=== PATIENT | female | born 1985 | race Caucasian/White ===

== ENCOUNTER 2016-11-22 02:23 | Emergency (ER) | payer OTHER ==
[2016-11-22] MEDS ORDERED: diphenhydrAMINE HCL 50 MG CAPSULE PO ONE (02:55)
[2016-11-22] MEDS ORDERED: predniSONE 20 MG TABLET (UD) PO ONE (03:08)
[2016-11-22 03:09] VITALS: TEMP 97.9; BMI 22.3
[2016-11-22] MEDS ORDERED: predniSONE 10 MG TABLET (UD) ONE (03:12)
[2016-11-22] MEDS ORDERED: diphenhydrAMINE HCL 25 MG CAPSULE (FP) PO ONE (03:12)
--- NOTE | 2016-11-22 03:51 | PDOC ---
History of Present Illness - History of Present Illness Initial Comments: 11/22/16 03:10 Ms. Girard is a 31 yo female with no significant pmh who presents with swelling of the upper lip. States that she ate shrimp and steak before bedtime and took 2 aspirin pills for a headache before bedtime. Denies itching of face/throat, tongue swelling, SOB, rash, eye involvement, or wheezing. Denies recent change in soap, shampoo, detergents, pillow cases, or towels. Denies trauma to lip. Denies OTC symptom management. <Josse Costa - Last Filed: 11/22/16 03:10> <Haley Deng - Last Filed: 11/22/16 04:41> - General Chief Complaint: Allergic Reaction Stated Complaint: ALLERGIC REACTION Time Seen by Provider: 11/22/16 02:43 Past History - Past Medical History Other medical history: Denies - Immunization History Immunization Up to Date: No - Psycho/Social/Smoking Cessation Hx Anxiety: No Suicidal Ideation: No Smoking History: Never smoked Have you smoked in the past 12 months: No Information on smoking cessation initiated: No Hx Alcohol Use: No Drug/Substance Use Hx: No Substance Use Type: None <Josse Costa - Last Filed: 11/22/16 03:10> <Haley Deng - Last Filed: 11/22/16 04:41> - Past Medical History Allergies/Adverse Reactions: Allergies Allergy/AdvReac Type Severity Reaction Status Date / Time No Known Allergies Allergy Verified 11/22/16 03:08 Home Medications: Ambulatory Orders Acetaminophen [Tylenol] 650 mg PO Q6H #100 tablet 07/13/14 Albuterol Sulfate Inhaler - [Ventolin HFA Inhaler -] 1 - 2 inh PO Q4H #1 inhaler 07/13/14 Ibuprofen [Motrin -] 600 mg PO TID #30 tablet 07/13/14 Ondansetron [Zofran Odt -] 4 mg SL TID #10 od.tablet 07/13/14 Diphenhydramine HCl [Benadryl -] 25 mg PO Q6H #28 capsule 11/22/16 Epinephrine [Epipen] 0.3 mg IJ ONCE #1 auto.injct 11/22/16 Prednisone [Deltasone -] 40 mg PO DAILY #10 tablet 11/22/16 Review of Systems - Review of Systems Comments:: 11/22/16 03:57 GENERAL/CONSTITUTIONAL: No fever or chills. No weakness. HEAD EYES, EARS, NOSE AND THROAT: + Upper Lip Swelling. No change in vision. No ear pain or discharge. No sore throat. CARDIOVASCULAR: No chest pain or shortness of breath RESPIRATORY: No cough, wheezing, or hemoptysis. GASTROINTESTINAL: No nausea, vomiting, diarrhea or constipation. GENITOURINARY: No dysuria, frequency, or change in urination. MUSCULOSKELETAL: No joint or muscle swelling or pain. No neck or back pain. SKIN: No rash NEUROLOGIC: No headache, vertigo, loss of consciousness, or change in strength/ sensation. ENDOCRINE: No increased thirst. No abnormal weight change HEMATOLOGIC/LYMPHATIC: No anemia, easy bleeding, or history of blood clots. ALLERGIC/IMMUNOLOGIC: No hives or skin allergy. <Johny Costason - Last Filed: 11/22/16 03:10> *Physical Exam - Vital Signs Last Vital Signs Temp Pulse Resp BP Pulse Ox 97.9 F 88 20 119/69 97 11/22/16 03:03 11/22/16 03:03 11/22/16 03:03 11/22/16 03:03 11/22/16 03:03 - Physical Exam Comments: 11/22/16 03:58 GENERAL: Awake, alert, and fully oriented, in no acute distress HEAD: + Upper lip swelling.No evidence of puncture on lip. No signs of trauma, normocephalic, atraumatic EYES: PERRLA, EOMI, sclera anicteric, conjunctiva clear ENT: Auricles normal inspection, hearing grossly normal, nares patent, oropharynx clear without exudates. Moist mucosa NECK: Normal ROM, supple, no lymphadenopathy, JVD, or masses LUNGS: No distress, speaks full sentences, clear to auscultation bilaterally HEART: Regular rate and rhythm, normal S1 and S2, no murmurs, rubs or gallops, peripheral pulses normal and equal bilaterally. ABDOMEN: Soft, nontender, normoactive bowel sounds. No guarding, no rebound. No masses EXTREMITIES: Normal inspection, Normal range of motion, no edema. No clubbing or cyanosis. NEUROLOGICAL: Cranial nerves II through XII grossly intact. Normal speech, normal gait, no focal sensorimotor deficits SKIN: Warm, Dry, normal turgor, no rashes or lesions noted. <Josse Costa - Last Filed: 11/22/16 03:10> - Vital Signs Last Vital Signs Temp Pulse Resp BP Pulse Ox 97.9 F 88 20 119/69 97 11/22/16 03:03 11/22/16 03:03 11/22/16 03:03 11/22/16 03:03 11/22/16 03:03 <Haley Deng - Last Filed: 11/22/16 04:41> ED Treatment Course - Medications Given in the ED: ED Medications Discontinued Medications Generic Name Dose Route Start Last Admin Trade Name Freq PRN Reason Stop Dose Admin Diphenhydramine HCl 50 mg 11/22/16 02:55 11/22/16 03:24 Benadryl - PO 11/22/16 02:56 50 mg ONCE ONE Administration Prednisone 20 mg 11/22/16 03:08 11/22/16 03:24 Deltasone - PO 11/22/16 03:09 20 mg ONCE ONE Administration <Haley Deng - Last Filed: 11/22/16 04:41> Medical Decision Making - Medical Decision Making 11/22/16 04:01 Ms. Girard is a 31 yo female who presents following swelling of the upper lip. Most likely 2/2 allergic reaction. Denies throat, tongue, or eye swelling/involvement. Absent rash. ED Course: Diphenhydramine 50 mg PO Prednisone 20 mg PO <Josse Costa - Last Filed: 11/22/16 03:10> *DC/Admit/Observation/Transfer - Discharge Dispostion Admit: No - Attestations Physician Attestion: 11/22/16 03:55 I, Dr. Josse Costa, attest that this document has been prepared under my direction and personally reviewed by me in its entirety. I further attest, that it accurately reflects all work, treatment, procedures and medical decision -making performed by me. <Josse Costa - Last Filed: 11/22/16 03:10> - Discharge Dispostion Admit: No <Haley Deng - Last Filed: 11/22/16 04:41> Diagnosis at time of Disposition: Lip swelling, Allergic reaction - Discharge Dispostion Disposition: HOME Condition at time of disposition: Stable - Prescriptions Prescriptions: Diphenhydramine HCl [Benadryl -] 25 mg PO Q6H #28 capsule Prednisone [Deltasone -] 40 mg PO DAILY #10 tablet Epinephrine [Epipen] 0.3 mg IJ ONCE #1 auto.injct - Referrals Referrals: STAFF,NOT ON [Primary Care Provider] - - Patient Instructions Printed Discharge Instructions: DI for Adverse Drug Reaction -- Allergic, DI for Food Allergy - Post Discharge Activity Work/School Note: Back to Work
[2016-11-22] MEDS ORDERED: RANITIDINE HCL 150 MG TABLET (FP) PO ONE (04:24)
[2016-11-22] MEDS ORDERED: RANITIDINE HCL 150 MG TABLET (FP) ONE (04:43)
--- NOTE | 2016-11-22 04:45 | PDOC ---
Attending Attestation - Resident Resident Name: Josse Costa - HPI HPI: 11/22/16 04:44 lip swelling after eating shrimp and taking asa; never had this before; no SOB; no throat or tongue involved. Pt has no voice changes - Physicial Exam PE: 11/22/16 04:45 Normal. Upper lip only swollen. - Medical Decision Making 11/22/16 04:45 food allergy vs. aspirin allergy
[2016-11-22 06:28] VITALS: BP 127/85; PULSE 86
== END 2016-11-22 06:39 | disposition home or self-care (01) ==
LOC: JER 02:23 → SUPCPDRO 02:23 → JER 06:39
DX: T78.1XXA Other adverse food reactions, not elsewhere classified, initial encounter (principal); T78.3XXA Angioneurotic edema, initial encounter; X58.XXXA Exposure to other specified factors, initial encounter
CPT/HCPCS: 99281-25

== ENCOUNTER 2019-04-24 23:23 | Emergency (ER) | payer OTHER ==
[2019-04-24 23:34] VITALS: TEMP 99.2; BMI 24.1
--- NOTE | 2019-04-24 23:44 | PDOC ---
*Physical Exam - Vital Signs Last Vital Signs Temp Pulse Resp BP Pulse Ox 99.2 F 89 18 121/61 100 04/24/19 23:33 04/24/19 23:33 04/24/19 23:33 04/24/19 23:33 04/24/19 23:33 Medical Decision Making - Medical Decision Making 04/24/19 23:44 Patient seen by the advanced practice provider under my direct supervision. Ancillary testing reviewed as necessary. I agree with plan as outlined by the advanced practice provider. Discharge - Discharge Information Problems reviewed: Yes Clinical Impression/Diagnosis: Pain of left calf Left knee pain Qualifiers: Chronicity: acute Qualified Code(s): M25.562 - Pain in left knee Disposition: HOME - Additional Discharge Information Prescriptions: Naproxen 500 mg PO BID PRN #30 tablet PRN Reason: Pain - Follow up/Referral Referrals: Frankie Rodriguez [Primary Care Provider] - Call tomorrow - Patient Discharge Instructions Additional Instructions: continue aleve twice daily apply ice to the area you may use an lizzy bandage for comfort. keep left elevated. follow up with your doctor as soon as possible - Post Discharge Activity Work/Back to School Note: Back to Work
--- NOTE | 2019-04-24 23:46 | PDOC ---
History of Present Illness - General Chief Complaint: Pain, Acute Stated Complaint: L LEG PAIN Time Seen by Provider: 04/24/19 23:39 History Source: Patient - History of Present Illness Initial Comments: 04/25/19 00:21 34 year old female c/o left knee pain/ calf pain for 1 day. patient noted with increased swelling since the afternoon patient denies shortness of breath. patienre ports taking tylenol, ibuprofen with no significant improvement is pain. patient reports that she has been running around with her kids more than usual a few days ago. denies trauma or fall no pmhx Currently "Kim" OCP use. LMP: 03/201904/25/19 00:43 Past History - Past Medical History Allergies/Adverse Reactions: Allergies Allergy/AdvReac Type Severity Reaction Status Date / Time No Known Allergies Allergy Verified 04/24/19 23:32 Home Medications: Ambulatory Orders Acetaminophen [Tylenol] 650 mg PO Q6H #100 tablet 07/13/14 Albuterol Sulfate Inhaler - [Ventolin HFA Inhaler -] 1 - 2 inh PO Q4H #1 inhaler 07/13/14 Ibuprofen [Motrin -] 600 mg PO TID #30 tablet 07/13/14 Ondansetron [Zofran Odt -] 4 mg SL TID #10 od.tablet 07/13/14 Diphenhydramine HCl [Benadryl Capsule -] 25 mg PO Q6H #28 capsule 11/22/16 Epinephrine [Epipen] 0.3 mg IJ ONCE #1 auto.injct 11/22/16 predniSONE [Deltasone -] 40 mg PO DAILY #10 tablet 11/22/16 Naproxen 500 mg PO BID PRN #30 tablet 04/25/19 COPD: No - Immunization History Immunization Up to Date: No - Psycho Social/Smoking Cessation Hx Smoking History: Never smoked Have you smoked in the past 12 months: No Hx Alcohol Use: No Drug/Substance Use Hx: No Substance Use Type: None Review of Systems - Review of Systems Able to Perform ROS?: Yes Is the patient limited Japanese proficient: No Musculoskeletal: Yes: Other (left calf pain and left knee pain) *Physical Exam - Vital Signs Last Vital Signs Temp Pulse Resp BP Pulse Ox 99.2 F 89 18 121/61 100 04/24/19 23:33 04/24/19 23:33 04/24/19 23:33 04/24/19 23:33 04/24/19 23:33 - Physical Exam General Appearance: Yes: Appropriately Dressed Respiratory/Chest: positive: Lungs Clear, Normal Breath Sounds Musculoskeletal: positive: Other (left anterior knee tenderness, able to leg raise, and extent leg) Extremity: positive: Calf Tenderness, Other (+ b/l pedal pulse) Integumentary: positive: Normal Color, Dry, Warm Neurologic: positive: Fully Oriented, Alert, Normal Mood/Affect ED Progress Note - Progress Note Progress Note: A: knee pain P: xray US Medical Decision Making - Medical Decision Making 04/25/19 00:44 US: There is no DVT in the left lower extremity. xray: no acute finding Discharge - Discharge Information Problems reviewed: Yes Clinical Impression/Diagnosis: Pain of left calf Left knee pain Qualifiers: Chronicity: acute Qualified Code(s): M25.562 - Pain in left knee Disposition: HOME - Additional Discharge Information Prescriptions: Naproxen 500 mg PO BID PRN #30 tablet PRN Reason: Pain - Follow up/Referral Referrals: Frankie Rodriguez [Primary Care Provider] - Call tomorrow - Patient Discharge Instructions Additional Instructions: continue aleve twice daily apply ice to the area you may use an lizzy bandage for comfort. keep left elevated. follow up with your doctor as soon as possible - Post Discharge Activity Work/Back to School Note: Back to Work
[2019-04-25] MEDS ORDERED: ACETAMINOPHEN 500 MG TABLET (FP) PO ONE (00:46)
[2019-04-25 01:38] VITALS: BP 127/74; PULSE 79
[2019-04-25] MEDS ORDERED: ACETAMINOPHEN 325 MG TABLET (FP) ONE (01:39)
== END 2019-04-25 01:47 | disposition home or self-care (01) ==
LOC: JER 23:23
DX: M25.562 Pain in left knee (principal)
CPT/HCPCS: 73560-TC-LT-FY; 73590-TC-LT-FY; 93971-TC; 99282-25

== ENCOUNTER 2021-09-07 13:20 | Emergency (ER) | payer OTHER ==
[2021-09-07 14:20] VITALS: BP 136/97; PULSE 89; BMI 24.0
[2021-09-07 14:21] VITALS: TEMP 98
[2021-09-07] MEDS ORDERED: DOXYCYCLINE HYCLATE 100 MG CAPSULE PO ONE ×2 (15:34→15:50)
== END 2021-09-07 15:53 | disposition home or self-care (01) ==
LOC: JERFT 13:20
DX: S70.362A Insect bite (nonvenomous), left thigh, initial encounter (principal); W57.XXXA Bitten or stung by nonvenomous insect and other nonvenomous arthropods, initial encounter
CPT/HCPCS: 36415; 84703; 86618; 99283-25

== ENCOUNTER 2022-12-08 15:22 | Emergency (ER) | payer OTHER ==
[2022-12-08 15:41] VITALS: BP 139/85; PULSE 72; RESP 18; TEMP 98.9; BMI 23.8
[2022-12-08] MEDS ORDERED: ACETAMINOPHEN 325 MG TABLET (FP) PO ONE (17:22)
[2022-12-08] MEDS ORDERED: IBUPROFEN 600 MG TABLET (FP) PO ONE ×2 (17:22→17:28)
[2022-12-08] MEDS ORDERED: ACETAMINOPHEN 325 MG TABLET (FP) ONE (17:28)
== END 2022-12-08 19:58 | disposition home or self-care (01) ==
LOC: JERFT 15:22
DX: S70.11XA Contusion of right thigh, initial encounter (principal); W01.0XXA Fall on same level from slipping, tripping and stumbling without subsequent striking against object, initial encounter
CPT/HCPCS: 73552-TC-RT-FY; 93971-TC; 99284-25

== ENCOUNTER 2024-01-22 17:58 | Emergency (ER) | payer OTHER ==
[2024-01-22 18:14] VITALS: BP 141/82; PULSE 95; RESP 18; TEMP 99; BMI 25.0
== END 2024-01-22 18:49 | disposition home or self-care (01) ==
LOC: FER 17:58
DX: S92.425A Nondisplaced fracture of distal phalanx of left great toe, initial encounter for closed fracture (principal); S30.810A Abrasion of lower back and pelvis, initial encounter; W18.39XA Other fall on same level, initial encounter
CPT/HCPCS: 73660-TC-LT-FY; 99283-25